=== PATIENT | male | born 1980 | race Caucasian/White ===

== ENCOUNTER 2017-01-23 15:57 | Emergency (ER) | payer MEDICAID ==
--- NOTE | 2017-01-23 17:09 | ER Document Report ---
ED Medical Screen (RME) - General Chief Complaint: Probable Seizure Stated Complaint: POSSIBLE SEIZURE Time Seen by Provider: 01/23/17 17:06 Notes: 36-year-old male patient with depression anxiety disorder on long-term psychiatric medication. He reports he took too much of his Wellbutrin today and that he took possibly 3 times the normal dose because he kept forgetting that he had already taken it. He was sitting down watching TV and his eyes rolled back and he began kicking the underneath side of the coffee table with both feet. It lasted less than 5 minutes, pulse briefly then occurred again for about 1 minute. Afterwards he was slurring his speech for a while. At this time he is alert and oriented with no real complaints. He states this has occurred in the past a few years ago when he accidentally took too much medication. There was no incontinence and no chewing of the tongue. I have greeted and performed a rapid initial assessment of this patient. A comprehensive ED assessment and evaluation of the patient, analysis of test results and completion of the medical decision making process will be conducted by additional ED providers. TRAVEL OUTSIDE OF THE [place] IN LAST 30 DAYS: No - Related Data Allergies/Adverse Reactions: haloperidol [From Haldol] Allergy (Verified 01/23/17 16:47) Dystonia haloperidol lactate [From Haldol] Allergy (Verified 01/23/17 16:47) Dystonia Past Medical History - Social History Chew tobacco use (# tins/day): No Frequency of alcohol use: None Drug Abuse: None Renal/ Medical History: Denies: Hx Peritoneal Dialysis Psychiatric Medical History: Reports: Hx Anxiety, Hx Depression, Hx Schizophrenia - Immunizations Immunizations up to date: No Hx Diphtheria, Pertussis, Tetanus Vaccination: No Physical Exam - Vital signs Vitals: Temp Pulse Resp BP Pulse Ox 98.3 F 112 H 16 126/90 H 96 01/23/17 16:03 01/23/17 16:03 01/23/17 16:03 01/23/17 16:03 01/23/17 16:03 Course - Vital Signs Vital signs: Temp Pulse Resp BP Pulse Ox 98.3 F 112 H 16 126/90 H 96 01/23/17 16:03 01/23/17 16:03 01/23/17 16:03 01/23/17 16:03 01/23/17 16:03
[2017-01-23 18:23] LABS: APPEARANCE,URINE CLEAR; BILIRUBIN,URINE NEGATIVE (NEGATIVE); GLUCOSE, URINE NEGATIVE (NEGATIVE); KETONES,URINE NEGATIVE (NEGATIVE); LEUKOCYTE ESTERASE,URINE NEGATIVE (NEGATIVE); NITRITE,URINE NEGATIVE (NEGATIVE); PROTEIN,URINE NEGATIVE (NEGATIVE); URINE SPECIFIC GRAVITY 1.002; UROBILINOGEN,URINE NEGATIVE mg/dL (<2.0)
[2017-01-23 18:36] LABS: URINE BARBITURATES SCREEN NEGATIVE; URINE METHADONE SCREEN NEGATIVE; URINE OPIATES LOW NEGATIVE; URINE PHENCYCLIDINE SCREEN NEGATIVE
[2017-01-23 18:43] LABS: ABSOLUTE MONOCYTES (AUTO) 0.6 10^3/uL (0.1-1.4); ABSOLUTE NEUT (AUTO) 5.6 10^3/uL (1.7-8.2); BASOPHILS % (AUTO) 0.5 % (0-2); EOSINOPHILS % (AUTO) 0.4 % (0-6); HEMATOCRIT 41.5 % (37.9-51.0); HEMOGLOBIN 14.2 g/dL (13.5-17.0); HGB HCT DIFFERENCE 1.1; LYMPHOCYTES % (AUTO) 24.5 % (13-45); MEAN CORPUSCULAR HEMOGLOBIN 31.6 pg (27.0-33.4); MEAN CORPUSCULAR HGB CONC 34.2 g/dL (32.0-36.0); MEAN CORPUSCULAR VOLUME 93 fl (80-97); MONOCYTES % (AUTO) 7.2 % (3-13); RED BLOOD COUNT 4.49 10^6/uL (4.35-5.55); RED CELL DISTRIBUTION WIDTH 13.5 % (11.5-14.0); SEGMENTED NEUTROPHILS % (AUTO) 67.4 % (42-78); WHITE BLOOD COUNT 8.4 10^3/uL (4.0-10.5)
[2017-01-23 18:50] VITALS: BP 119/84
[2017-01-23 19:02] LABS: ALANINE AMINOTRANSFERASE 124 U/L (21-72); ALBUMIN 4.3 g/dL (3.5-5.0); ALKALINE PHOSPHATASE 85 U/L (38-126); ANION GAP 11 (5-19); ASPARTATE AMINO TRANSFERASE 62 U/L (17-59); BILIRUBIN,DIRECT 0.4 mg/dL (0.0-0.4); BILIRUBIN,TOTAL 0.6 mg/dL (0.2-1.3); BLOOD UREA NITROGEN 14 mg/dL (7-20); CALCIUM 9.5 mg/dL (8.4-10.2); CARBON DIOXIDE 25 mmol/L (22-30); CHLORIDE 104 mmol/L (98-107); CREATININE RESULT 1.03 mg/dL (0.52-1.25); GLUCOSE 91 mg/dL (75-110); POTASSIUM 3.9 mmol/L (3.6-5.0); SODIUM 139.5 mmol/L (137-145); TOTAL PROTEIN 7.7 g/dL (6.3-8.2)
--- NOTE | 2017-01-23 19:04 | ER Document Report ---
ED General - General Chief Complaint: Probable Seizure Stated Complaint: POSSIBLE SEIZURE Time Seen by Provider: 01/23/17 17:06 Mode of Arrival: Ambulatory Information source: Patient Notes: This is a 36-year-old man with a history of depression, psychosis who is brought to the emergency room after a witnessed seizure at home. Patient's significant other was at home and observed tonic-clonic activity lasting for a few minutes followed by a postictal confusion. Accidentally patient states he took his medicines twice today. He denies any recent fevers or illnesses. He denies any headache. He states he was a little sleepy before the event. Medications: Wellbutrin, Seroquel, Zyprexa, Prilosec Allergies: Haldol TRAVEL OUTSIDE OF THE [place] IN LAST 30 DAYS: No - HPI Onset: Just prior to arrival Onset/Duration: Gradual Quality of pain: No pain Severity: None Pain Level: Denies Associated symptoms: denies: Chest pain, Fever, Shortness of breath Exacerbated by: Denies Relieved by: Denies Similar symptoms previously: Yes Recently seen / treated by doctor: No - Related Data Allergies/Adverse Reactions: haloperidol [From Haldol] Allergy (Verified 01/23/17 16:47) Dystonia haloperidol lactate [From Haldol] Allergy (Verified 01/23/17 16:47) Dystonia Past Medical History - General Information source: Patient - Social History Smoking Status: Current Every Day Smoker Cigarette use (# per day): Yes Chew tobacco use (# tins/day): No Frequency of alcohol use: None Drug Abuse: None Lives with: Family Family History: Reviewed & Not Pertinent Patient has suicidal ideation: No Patient has homicidal ideation: No - Past Medical History Cardiac Medical History: Reports: None Pulmonary Medical History: Reports: None EENT Medical History: Reports: None Neurological Medical History: Reports: Other Other: History of seizure in the past Endocrine Medical History: Reports: None Renal/ Medical History: Denies: Hx Peritoneal Dialysis Malignancy Medical History: Reports None GI Medical History: Reports: None Psychiatric Medical History: Reports: Hx Anxiety, Hx Depression, Hx Schizophrenia Surgical Hx: Negative - Immunizations Immunizations up to date: No Hx Diphtheria, Pertussis, Tetanus Vaccination: No Review of Systems - Review of Systems Constitutional: denies: Chills, Fever EENT: No symptoms reported Cardiovascular: No symptoms reported Respiratory: No symptoms reported Gastrointestinal: No symptoms reported Genitourinary: No symptoms reported Male Genitourinary: No symptoms reported Musculoskeletal: No symptoms reported Skin: No symptoms reported Hematologic/Lymphatic: No symptoms reported Neurological/Psychological: See HPI Physical Exam - Vital signs Vitals: Temp Pulse Resp BP Pulse Ox 98.3 F 112 H 16 126/90 H 96 01/23/17 16:03 01/23/17 16:03 01/23/17 16:03 01/23/17 16:03 01/23/17 16:03 Notes: Physical exam: GENERAL: 36-year-old man, alert and oriented 3, no acute distress HEAD: Atraumatic, normocephalic. EYES: Pupils equal round and reactive to light, extraocular movements intact, sclera anicteric, conjunctiva are normal. ENT: Patient does have lateral abrasions to the side of the tongue bilaterally, no urine incontinence during the event. Oropharynx clear without exudates. Moist mucous membranes. NECK: Normal range of motion, supple without lymphadenopathy or JVD. LUNGS: Breath sounds clear to auscultation bilaterally and equal. No wheezes rales or rhonchi. HEART: Regular rate and rhythm without murmurs, rubs or gallops. ABDOMEN: Soft, normoactive bowel sounds. No tenderness to palpation. No guarding, no rebound. No masses appreciated. EXTREMITIES: Normal range of motion, no pitting or edema. No clubbing or cyanosis. NEUROLOGICAL: Cranial nerves II through XII grossly intact. Normal speech, motor 5/5, sensory grossly intact, cerebellar (finger to nose) sees good. PSYCH: Normal mood, normal affect. SKIN: Warm, Dry, normal turgor, no rashes or lesions noted. Course - Vital Signs Vital signs: Temp Pulse Resp BP Pulse Ox 98.3 F 112 H 18 119/84 94 01/23/17 16:03 01/23/17 16:03 01/23/17 18:24 01/23/17 18:24 01/23/17 18:24 - Laboratory Result Diagrams: 01/23/17 18:38 01/23/17 18:38 Laboratory results interpreted by me: 01/23/17 01/23/17 18:11 18:38 AST 62 H ALT 124 H Urine Blood LARGE H - EKG Interpretation by Me Rate: Normal Rhythm: NSR - EKG shows normal sinus rhythm with a ventricular rate of 97, left axis deviation, no acute ST-T wave changes, no interval prolongations. Discharge - Discharge Clinical Impression: Seizure Condition: Stable Disposition: HOME, SELF-CARE Additional Instructions: As we discussed, your labs look quite good. He did have a mild elevation in your liver enzymes which as you have mentioned you had in the past. I would just follow up with your primary care doctor. If you do not have a primary care doctor, you can follow[facility]up with the [facility]: The numbers on the chart. As far as the seizure, I would follow-up with a neurologist. I have also put the number of a chart for a neurologist. In general, I do not recommend you drive until you see a neurologist because of the seizure. Return to the emergency room for any problems. Referrals: [facility] [Provider Group] - Follow up as needed (This is the [facility] of [facility]. Call for an appointment.) DARLEEN CENTENO MD [ACTIVE STAFF] - Follow up in 3-5 days (This is the number for the neurologist: Call for an appointment)
--- NOTE | 2017-01-24 07:36 | EKG REPORT ---
SEVERITY:- ABNORMAL ECG - SINUS RHYTHM BORDERLINE LEFT AXIS DEVIATION NONSPECIFIC ST-T CHANGES- INFERIOR LEADS : Confirmed by: Lamberto Pederson MD 24-Jan-2017 07:35:07
== END 2017-01-23 23:13 | disposition home or self-care (01) ==
LOC: ER 15:57
DX: R56.9 Unspecified convulsions (principal); F32.9 Major depressive disorder, single episode, unspecified; F17.210 Nicotine dependence, cigarettes, uncomplicated
CPT/HCPCS: 36415; 80053; 80307; 81001; 85025; 93005; 93010; 99284